=== PATIENT | female | born 1960 | race Caucasian/White ===

== ENCOUNTER 2016-07-10 17:51 | Inpatient (IN) | payer MEDICARE, OTHER ==
[~2016-07-10] VITALS: Ht 175.3 cm; Wt 143.0 kg
[2016-07-10 19:13] LABS: ALBUMIN 2.4 gm/dL (3.4-5.0); ALKALINE PHOSPHATASE 226 U/L (50-136); ALT/SGPT 21 U/L (3.5-33.9); AST/SGOT 45 U/L (7.04-26.96); BILIRUBIN,TOTAL 0.41 mg/dL (0.0-1.0); BLOOD UREA NITROGEN 11 mg/dL (7-18); CALCIUM 8.8 mg/dL (8.7-10.7); CARBON DIOXIDE 25 mmol/L (21-32); CREATININE 0.5 mg/dL (0.6-1.3); GLUCOSE,RANDOM 169 mg/dL (70-99); POTASSIUM 4.5 mmol/L (3.5-5.1); SODIUM 137 mmol/L (136-145); TOTAL PROTEIN 6.2 gm/dL (6.4-8.2)
[2016-07-11 07:39] LABS: HEMATOCRIT 43.5 % (34-45); MEAN CORPUSCULAR HEMOGLOBIN 30.9 pg (27.0-33.0); MEAN CORPUSCULAR HGB CONC 32.2 g/dL (32.0-36.0); MEAN PLATELET VOLUME 9.8 fl (7.5-11.5); RED BLOOD COUNT 4.53 x10_6/uL (3.9-5.2); RED CELL DISTRIBUTION WIDTH 14.9 % (11.7-14.4); WHITE BLOOD COUNT 8.2 x10_3/uL (4.0-10.0)
[2016-07-11 07:55] LABS: BLOOD UREA NITROGEN 12 mg/dL (7-18); CALCIUM 9.2 mg/dL (8.7-10.7); CARBON DIOXIDE 29 mmol/L (21-32); CREATININE < 0.5 mg/dL (0.6-1.3); GLUCOSE,RANDOM 187 mg/dL (70-99); SODIUM 136 mmol/L (136-145)
[2016-07-11 07:55] LABS: URINE BILIRUBIN 1+ (NEGATIVE); URINE BLOOD TRACE (NEGATIVE); URINE GLUCOSE (UA) NORMAL (NORMAL); URINE KETONE TRACE (NEGATIVE); URINE LEUKOCYTE ESTERASE 2+ (NEGATIVE); URINE NITRATE NEGATIVE (NEGATIVE); URINE PROTEIN 1+ (NEGATIVE)
[2016-07-11 08:50] LABS: URINE BACTERIA FEW (NONE SEEN); URINE RBC 0-5 /[HPF] (0-2); URINE SQUAMOUS EPITHELIAL CELL 0-10 /[HPF] (NONE SEEN); URINE WBC TNTC /[HPF] (0-5)
[2016-07-13 11:02] LABS: HEMATOCRIT 44.6 % (34-45); HEMOGLOBIN 14.4 g/dL (11.2-15.7); MEAN CORPUSCULAR HEMOGLOBIN 31.2 pg (27.0-33.0); MEAN CORPUSCULAR HGB CONC 32.3 g/dL (32.0-36.0); MEAN CORPUSCULAR VOLUME 96.5 fL (79-95); MEAN PLATELET VOLUME 9.6 fl (7.5-11.5); RED BLOOD COUNT 4.62 x10_6/uL (3.9-5.2); RED CELL DISTRIBUTION WIDTH 14.9 % (11.7-14.4); WHITE BLOOD COUNT 9.7 x10_3/uL (4.0-10.0)
[2016-07-13 11:04] LABS: ARTERIAL BLD GAS O2 SATURATION 92.4 % (94-98); ARTERIAL BLOOD GAS BASE EXCESS 6.5 mmol/L (-2.0-3.0); ARTERIAL BLOOD GAS HCO3 32.4 mmol/L (22-26); ARTERIAL BLOOD GAS PCO2 50.4 mmHg (32-45); ARTERIAL BLOOD GAS pH 7.42 (7.35-7.45)
[2016-07-13 11:42] LABS: BLOOD UREA NITROGEN 12 mg/dL (7-18); CALCIUM 8.8 mg/dL (8.7-10.7); CARBON DIOXIDE 28 mmol/L (21-32); CREATININE 0.6 mg/dL (0.6-1.3); GLUCOSE,RANDOM 192 mg/dL (70-99); POTASSIUM 4.5 mmol/L (3.5-5.1); SODIUM 137 mmol/L (136-145)
== END 2016-07-13 12:42 | disposition other institution (70) | DRG 557 ==
LOC: SWING 17:51
PROVIDERS: ADMIT Family Medicine
DX: M62.50 Muscle wasting and atrophy, not elsewhere classified, unspecified site (principal); J18.9 Pneumonia, unspecified organism; N39.0 Urinary tract infection, site not specified; J81.1 Chronic pulmonary edema; R91.8 Other nonspecific abnormal finding of lung field; E11.9 Type 2 diabetes mellitus without complications; E03.9 Hypothyroidism, unspecified; F41.9 Anxiety disorder, unspecified; R53.1 Weakness; S22.040D Wedge compression fracture of fourth thoracic vertebra, subsequent encounter for fracture with routine healing; Z98.890 Other specified postprocedural states; Z79.899 Other long term (current) drug therapy; Z79.891 Long term (current) use of opiate analgesic; Z79.1 Long term (current) use of non-steroidal anti-inflammatories (NSAID); Z79.4 Long term (current) use of insulin
CPT/HCPCS: 36415; 36600; 71010; 80048; 80053; 81001; 82803; 82962; 83036; 83880; 87070; 87086; 94640; 97110; 97530; 99070; J2930